=== PATIENT | male | born 1975 | race African-American/Black ===

== ENCOUNTER → 2016-10-31 | Day surgery (SDC) | payer OTHER ==
[~2016-10-31] MED LIST: LISINOPRIL20 MG PO; VICODIN PO; ZOLOFT PO
--- NOTE | ~2016-10-31 | OR ---
Unit #: [id number] #: [id number] Patient: DAYLIN MARTIN [id number] [address] [place], [place] [address] [id number] O MR#: [id number] NAME: DAYLIN MARTIN ROOM: Date of Procedure: 10/31/2016 Admission Date: 10/31/2016 Surgeon: Fredy Berry M.D. : 1975 Attending Physician: Fredy Berry M.D. Primary Care Physician: Primary Care Physician No OPERATIVE REPORT PRIMARY CARE PHYSICIAN Dr. Juan Carlos Draper. PREOPERATIVE DIAGNOSES The patient presented for colorectal cancer screening. His grandfather had history of colon cancer. PROCEDURE PERFORMED Colonoscopy up to cecum and terminal ileum with fair prep and visualization. POSTOPERATIVE DIAGNOSES Small internal hemorrhoids. Otherwise, completely normal examination up to cecum and terminal ileum. No polyps or diverticula were present. RECOMMENDATIONS Repeat colonoscopy in 5 years. SEDATION USED MAC. DESCRIPTION OF PROCEDURE Following detailed explanation of the potential risks and complications of a colonoscopy, namely perforation, bleeding, and complications related to sedation, the patient was brought to GI lab and laid in the left lateral decubitus position. A digital rectal examination was performed, which was normal. Lubricated tip of the Olympus video colonoscope was inserted through the anus and advanced under direct vision. The scope was advanced and passed up to sigmoid into descending colon. No diverticula were seen in this area. The scope tip was then navigated all the way up to cecum with visualization of the ileocecal valve and the appendiceal orifice. Preparation was fair with good visualization and photodocumentation was obtained. Last few inches of the terminal ileum were also visualized after intubation of the ileocecal valve and appeared normal. Successive segments of the colonic mucosa were examined upon withdrawal and appeared unremarkable. There being no polyps, mass lesions, AVMs, or diverticula. The patient did have small internal hemorrhoids at anal verge seen at the time of withdrawal. The scope was then withdrawn. The patient returned to the recovery area. He tolerated the procedure without any postprocedure complications. Unit #: [id number] #: [id number] Patient: DAYLIN MARTIN Dictated by... Darrin Dennis/michelle TD: 10/31/2016 11:27 JOB #: [id number] OPERATIVE REPORT Page 1 of 1 X Fredy Berry MD PROCEDURE OPERATIVE NOTE
== END | disposition home or self-care (01) ==
LOC: COPS 06:36
DX: Z12.11 Encounter for screening for malignant neoplasm of colon (principal); K64.8 Other hemorrhoids; I10 Essential (primary) hypertension; Z80.0 Family history of malignant neoplasm of digestive organs; Z79.899 Other long term (current) drug therapy; Z98.52 Vasectomy status
CPT/HCPCS: J2250